=== PATIENT | male | born 1995 | race Caucasian/White ===

== ENCOUNTER 2021-05-04 13:52 | Outpatient (REF) | payer OTHER, SELFPAY ==
[2021-05-04 17:00] LABS: Alanine Aminotransferase 40 U/L (0-40); Albumin Level 4.4 g/dL (3.5-5.0); Alkaline Phosphatase 65 U/L (39-117); Anion Gap 14 (12-20); Aspartate Amino Transferase 19 U/L (5-37); Bilirubin Total 0.7 mg/dL (0.0-1.0); Blood Urea Nitrogen 8 mg/dL (9-16); Calcium 9.8 mg/dL (8.4-10.2); Carbon Dioxide 23 mmol/L (22-29); Chloride 106 mmol/L (96-108); Cholesterol 185 mg/dL; Estimated Glomerular Filt Rate > 60; Glucose Fasting 98 mg/dL (60-99); HDL Cholesterol 46 mg/dL; LDL Cholesterol Calculated 112 mg/dl; Potassium 4.2 mmol/L (3.3-5.1); Sodium 139 mmol/L (135-145); Total Protein 7.5 g/dL (6.5-8.0); Triglycerides 137 mg/dL
== END 2021-05-04 13:53 | disposition home or self-care (01) ==
LOC: HO.HMGCLDS 13:52
PROVIDERS: PCP Internal Medicine; Visit Provider Internal Medicine
DX: Z00.00 Encounter for general adult medical examination without abnormal findings (principal)
CPT/HCPCS: 36415; 80053; 80061

== ENCOUNTER 2021-05-06 11:30 | Outpatient (RCR) | payer OTHER, SELFPAY ==
[2021-05-05 14:02] VITALS: BP 130/80; PULSE 91; O2SAT 98
--- NOTE | 2021-05-05 16:08 | MHC.PT.EP ---
[facility] [place] [facility] [place] Office [place] Office [address] Maru Erickson [address] [phone] F: [phone] F: [phone] F: [phone] F: [phone] Physical Therapy Plan of Care Date of Evaluation: Date of Surgery: Diagnosis: This is a 25 yo male presenting to skilled PT with a script for vertigo. Assessment: This is a 25 yo male presenting to skilled PT with a script for vertigo. Pt was just in to [facility] walk-in clinic yesterday for f/u of [facility] ER visit for vertigo this past Monday 04/30. Patient complains of positional vertigo on and off. His symptoms started in February but improved with time in March. However, about a week ago his symptoms came back. His symptoms included vomiting, room spinning, CARDONA and increased sweating/heart rate. Symptoms increased with getting out/in bed, rolling in bed (so he has slept in the recliner). 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 He wants to get back to work [employer] but is worried about symptoms. He has been taking meclizine for symptom management as needed. Examination shows normal oculomotor tests except for horizontal saccades, (-) VBI B, normal scores on balance tests except for feeling off with head turns and EC, normal cervical AROM. He was (+) for BPPV with anthony-hallpike and L elier maneuver which was improved s/p tx. S/S consistent with L PC BPPV and would benefit from PT 2x/wk for 4wks to address impairments, implement HEP and optimize functional. Frequency and Duration: The patient will be seen 2x/wk for 4wks Short Term Goals: Intermediate Goals: I in HEP No nystagmus or symptoms in any testing positions No LOB noted and normal scores on balance tests Return to work in full Treatment Plan: Modalities to reduce pain, spasms and effusion. Manual therapy to restore motion and function. Therapeutic exercise to improve strength and flexibility. Neuromuscular re-education for posture and balance. Therapeutic activities to return to functional activities of daily living. Electronically signed by: Angella Dubuc, PT Please sign and return to therapist. Thank you for your referral.
--- NOTE | 2021-06-02 13:33 | MHC.PT.DC ---
[facility] [place] Office [place] Office [place] Office [address] Maru Erickson [address] [phone] F: [phone] F: [phone] F: [phone] F: [phone] Physical Therapy Discharge Report Diagnosis: This is a 25 yo male presenting to skilled PT with a script for vertigo. Date of Surgery: Date of Evaluation: 05/05/21 Date of Discharge: 06/02/21 Treatments to Date: 2 Cancellations to Date: 0 No Shows to Date: 0 Discharge Status: Achieved Goals Improved Function Independent with HEP Discharge Summary: Assessed all 6 canals with [place]-Hallpike and Roll Test. (-) for sx and nystagmus. Pt chart was kept open for 30 days in case of recurrence. Discussed this with pt. Electronically signed by: Angella Bales, PT Please sign and return to therapist. Thank you for your referral.
== END 2021-06-02 13:33 | disposition home or self-care (01) ==
LOC: HO.PTCHIC 11:30
PROVIDERS: PCP Internal Medicine; Visit Provider Internal Medicine
DX: R42 Dizziness and giddiness (principal)
CPT/HCPCS: 95992; 97161